=== PATIENT | male | born 1995 | race Caucasian/White ===

== ENCOUNTER 2017-08-09 02:17 | Emergency (ER) | payer OTHER ==
[~2017-08-09] VITALS: Ht 182.9 cm; Wt 85.0 kg
[2017-08-09 02:30] VITALS: BP 154/80; PULSE 67; RESP 16; TEMP 98.1; O2SAT 100
[2017-08-09 02:33] VITALS: BP 119/75; PULSE 91; RESP 19; TEMP 98.9; O2SAT 99
--- NOTE | 2017-08-09 02:33 | PD ---
HPI Chief Complaint: BA Time Seen by Provider: 02:30 Travel History International Travel<30 days: No Contact w/Intl Traveler<30days: No Traveled to known affect area: No History of Present Illness HPI 21-year-old male presents under [place] act [place] [employer]. The patient reports that he has been depressed most of his life. Hubert his girlfriend workup with him after they were at a bar. He reports that he was feeling depressed and suicidal and told her mother that he was feeling suicidal release he was placed under Jeffrey act. Symptoms are moderate, aggravated by a breakup with no relieving factors. He is currently feeling depressed but is no longer having suicidal thoughts. He reports that the thoughts were passive and he did not have formulated plan. He reports that he smoked marijuana 2 weeks ago. Denies any other drug use. He drinks 2 beers hubert. He has some abrasions on his left forearm which he reports is secondary to picking up a branch of the palm tree. Last tetanus vaccination unknown. He has no other complaints at this time. [facility] Social History Alcohol Use: Yes Tobacco Use: No Allergies-Medications (Allergen,Severity, Reaction): Coded Allergies: No Known Allergies (Unverified , 08/09/17) Reported Meds & Prescriptions Reported Meds & Active Scripts Active No Active Prescriptions or Reported Medications Review of Systems Except as stated in HPI: all other systems reviewed are Neg Physical Exam Narrative GENERAL: Well-developed well-nourished male no acute distress SKIN: Warm and dry. Abrasions left forearm HEAD: Atraumatic. Normocephalic. EYES: Pupils equal and round. No scleral icterus. No injection or drainage. ENT: No nasal bleeding or discharge. Mucous membranes pink and moist. NECK: Trachea midline. No JVD. CARDIOVASCULAR: Regular rate and rhythm. No murmur appreciated. RESPIRATORY: No accessory muscle use. Clear to auscultation. Breath sounds equal bilaterally. GASTROINTESTINAL: Abdomen soft, non-tender, nondistended. Hepatic and splenic margins not palpable. MUSCULOSKELETAL: No obvious deformities. No clubbing. No cyanosis. No edema. NEUROLOGICAL: Awake and alert. No obvious cranial nerve deficits. Motor grossly within normal limits. Normal speech. PSYCHIATRIC: Depressed mood; insight and judgment normal. Data Data Last Documented VS Vital Signs Date Time Temp Pulse Resp B/P (MAP) Pulse Ox O2 Delivery O2 Flow Rate FiO2 08/09/17 02:30 98.1 67 16 154/80 (104) 100 Orders Orders Complete Blood Count With Diff (08/09/17 02:31) Comprehensive Metabolic Panel (08/09/17 02:31) Thyroid Stimulating Hormone (08/09/17 02:31) Psych Screen (08/09/17 02:31) Drug Screen, Random Urine (08/09/17 02:31) Alcohol (Ethanol) (08/09/17 02:31) Tetanus/Diphtheria Tox Adult (Tetanus/Di (08/09/17 02:45) Labs Laboratory Tests Test 08/09/17 02:30 08/09/17 03:30 White Blood Count 12.2 TH/MM3 Red Blood Count 4.93 MIL/MM3 Hemoglobin 14.8 GM/DL Hematocrit 42.3 % Mean Corpuscular Volume 85.7 FL Mean Corpuscular Hemoglobin 30.0 PG Mean Corpuscular Hemoglobin Concent 35.0 % Red Cell Distribution Width 13.0 % Platelet Count 248 TH/MM3 Mean Platelet Volume 9.5 FL Neutrophils (%) (Auto) 75.4 % Lymphocytes (%) (Auto) 15.3 % Monocytes (%) (Auto) 7.9 % Eosinophils (%) (Auto) 1.0 % Basophils (%) (Auto) 0.4 % Neutrophils # (Auto) 9.2 TH/MM3 Lymphocytes # (Auto) 1.9 TH/MM3 Monocytes # (Auto) 1.0 TH/MM3 Eosinophils # (Auto) 0.1 TH/MM3 Basophils # (Auto) 0.1 TH/MM3 CBC Comment DIFF FINAL Differential Comment Blood Urea Nitrogen 9 MG/DL Creatinine 0.91 MG/DL Random Glucose 84 MG/DL Total Protein 7.9 GM/DL Albumin 4.9 GM/DL Calcium Level 8.9 MG/DL Alkaline Phosphatase 67 U/L Aspartate Amino Transf (AST/SGOT) 9 U/L Alanine Aminotransferase (ALT/SGPT) 29 U/L Total Bilirubin 0.6 MG/DL Sodium Level 143 MEQ/L Potassium Level 3.7 MEQ/L Chloride Level 108 MEQ/L Carbon Dioxide Level 23.6 MEQ/L Anion Gap 11 MEQ/L Estimat Glomerular Filtration Rate 105 ML/MIN Thyroid Stimulating Hormone 3rd Gen 0.965 uIU/ML Ethyl Alcohol Level 18 MG/DL Urine Opiates Screen NEG Urine Barbiturates Screen NEG Urine Amphetamines Screen NEG Urine Benzodiazepines Screen NEG Urine Cocaine Screen NEG Urine Cannabinoids Screen NEG MDM Medical Decision Making Medical Screen Exam Complete: Yes Emergency Medical Condition: Yes Medical Record Reviewed: Yes Differential Diagnosis Adjustment reaction, acute psychosis, substance-induced mood disorder, major depressive disorder Narrative Course Mental health screening discussed with the patient. Psychiatric screen ordered. The patient is medically cleared Diagnosis Primary Impression: Medical clearance for psychiatric admission Scripts No Active Prescriptions or Reported Meds Magdaleno Weiner Aug 09, 2017 02:33
[2017-08-09] MEDS ORDERED: TETANUS/DIPHTHERIA TOXOID ADULT 0.5 ML VIAL IM ONE (02:45)
[2017-08-09 02:51] LABS: AUTOMATED NEUTROPHIL # 9.2 TH/MM3 (1.8-7.7); BASOPHIL # 0.1 TH/MM3 (0-0.2); BASOPHIL % 0.4 % (0.0-2.0); EOSINOPHIL # 0.1 TH/MM3 (0-0.4); HEMATOCRIT 42.3 % (39.0-51.0); HEMOGLOBIN 14.8 GM/DL (13.0-17.0); LYMPH % 15.3 % (9.0-44.0); LYMPHOCYTE # 1.9 TH/MM3 (1.0-4.8); MEAN CELL VOLUME 85.7 FL (80.0-100.0); MEAN PLATELET VOLUME 9.5 FL (7.0-11.0); MONO % 7.9 % (0.0-8.0); NEUT % 75.4 % (16.0-70.0); PLATELET COUNT 248 TH/MM3 (150-450); RED BLOOD COUNT 4.93 MIL/MM3 (4.50-5.90); WHITE BLOOD COUNT 12.2 TH/MM3 (4.0-11.0)
[2017-08-09 03:13] LABS: ALBUMIN 4.9 GM/DL (3.4-5.0); ALT (GPT) 29 U/L (12-78); AST (GOT) 9 U/L (15-37); BICARBONATE 23.6 MEQ/L (21.0-32.0); BLOOD UREA NITROGEN 9 MG/DL (7-18); CALCIUM 8.9 MG/DL (8.5-10.1); CHLORIDE 108 MEQ/L (98-107); CREATININE 0.91 MG/DL (0.60-1.30); GLOMERULAR FILTRATION RATE 105 ML/MIN (>89); GLUCOSE,RANDOM 84 MG/DL (74-106); SODIUM (NA) 143 MEQ/L (136-145)
[2017-08-09 03:23] LABS: ALKALINE PHOSPHATASE 67 U/L (45-117); TOTAL BILIRUBIN ADULT 0.6 MG/DL (0.2-1.0); TOTAL PROTEIN 7.9 GM/DL (6.4-8.2)
[2017-08-09 05:48] VITALS: BP 135/71; PULSE 61; RESP 16; O2SAT 100
[2017-08-09 18:19] VITALS: BP 112/69; PULSE 59; RESP 16; O2SAT 100
[2017-08-09 22:36] VITALS: BP 125/66; PULSE 78; RESP 16; TEMP 99.1; O2SAT 100
[2017-08-10 06:49] VITALS: BP 125/68; PULSE 67; RESP 18; TEMP 97.8; O2SAT 99
[2017-08-10 10:24] VITALS: BP 120/64; PULSE 80; RESP 18; O2SAT 99
--- NOTE | 2017-08-10 10:34 | PD ---
Physical Exam Date Seen by Provider: Aug 10, 2017 Time Seen by Provider: 10:33 Data Data Last Documented VS Vital Signs Date Time Temp Pulse Resp B/P (MAP) Pulse Ox O2 Delivery O2 Flow Rate FiO2 08/10/17 10:24 80 18 120/64 (82) 99 Room Air 08/10/17 06:49 97.8 Orders Orders Complete Blood Count With Diff (08/09/17 02:31) Comprehensive Metabolic Panel (08/09/17 02:31) Thyroid Stimulating Hormone (08/09/17 02:31) Psych Screen (08/09/17 02:31) Drug Screen, Random Urine (08/09/17 02:31) Alcohol (Ethanol) (08/09/17 02:31) Tetanus/Diphtheria Tox Adult (Tetanus/Di (08/09/17 02:45) Diet Regular Basic (08/09/17 Breakfast) Diet Regular Basic (08/09/17 Dinner) Diet Regular Basic (08/10/17 Breakfast) Ed Discharge Order (08/10/17 10:41) Labs Laboratory Tests Test 08/09/17 02:30 08/09/17 03:30 White Blood Count 12.2 TH/MM3 Red Blood Count 4.93 MIL/MM3 Hemoglobin 14.8 GM/DL Hematocrit 42.3 % Mean Corpuscular Volume 85.7 FL Mean Corpuscular Hemoglobin 30.0 PG Mean Corpuscular Hemoglobin Concent 35.0 % Red Cell Distribution Width 13.0 % Platelet Count 248 TH/MM3 Mean Platelet Volume 9.5 FL Neutrophils (%) (Auto) 75.4 % Lymphocytes (%) (Auto) 15.3 % Monocytes (%) (Auto) 7.9 % Eosinophils (%) (Auto) 1.0 % Basophils (%) (Auto) 0.4 % Neutrophils # (Auto) 9.2 TH/MM3 Lymphocytes # (Auto) 1.9 TH/MM3 Monocytes # (Auto) 1.0 TH/MM3 Eosinophils # (Auto) 0.1 TH/MM3 Basophils # (Auto) 0.1 TH/MM3 CBC Comment DIFF FINAL Differential Comment Blood Urea Nitrogen 9 MG/DL Creatinine 0.91 MG/DL Random Glucose 84 MG/DL Total Protein 7.9 GM/DL Albumin 4.9 GM/DL Calcium Level 8.9 MG/DL Alkaline Phosphatase 67 U/L Aspartate Amino Transf (AST/SGOT) 9 U/L Alanine Aminotransferase (ALT/SGPT) 29 U/L Total Bilirubin 0.6 MG/DL Sodium Level 143 MEQ/L Potassium Level 3.7 MEQ/L Chloride Level 108 MEQ/L Carbon Dioxide Level 23.6 MEQ/L Anion Gap 11 MEQ/L Estimat Glomerular Filtration Rate 105 ML/MIN Thyroid Stimulating Hormone 3rd Gen 0.965 uIU/ML Ethyl Alcohol Level 18 MG/DL Urine Opiates Screen NEG Urine Barbiturates Screen NEG Urine Amphetamines Screen NEG Urine Benzodiazepines Screen NEG Urine Cocaine Screen NEG Urine Cannabinoids Screen NEG MDM Supervised Visit with [facility]: No Narrative Course 21-year-old male who presented to the ED for evaluation with some passive suicidal thoughts. He was placed under Jeffrey act. He was evaluated by Magdaleno Weiner and cleared from the medical perspective. He was then evaluated by Sienna Pace, md psychiatry. He was arranged with the patient will be transferred to [facility] for outpatient care. He is stable and transferred to [facility] under the BA. Diagnosis Primary Impression: Medical clearance for psychiatric admission Additional Impression: Depressive disorder Referrals: [facility] (Out patient) [facility] Scripts No Active Prescriptions or Reported Meds Disposition: 70 TRANSFER TO OTHER FACILITY Condition: Stable Theodora Barahona Aug 10, 2017 10:34
== END 2017-08-10 11:00 | disposition short-term general hospital (02) ==
LOC: NEPD 02:17 → NEPJ 08-10 11:00
DX: F32.9 Major depressive disorder, single episode, unspecified (principal); R45.851 Suicidal ideations; F12.90 Cannabis use, unspecified, uncomplicated; Z23 Encounter for immunization
CPT/HCPCS: 80053; 80307; 84443; 85025; 90471; 90714